=== PATIENT | female | born 1980 | race African-American/Black ===

== ENCOUNTER 2020-12-20 01:01 | Emergency (ER) | payer OTHER ==
[~2020-12-20] VITALS: Ht 167.6 cm; Wt 69.9 kg
--- NOTE | 2020-12-20 01:08 | NUR ---
PT BIBRA C/O OF DIZZINESS AND PALPITATIONS THAT HAVE RESOLVED. PT AAOX4. PT STATES THAT SHE HAS "BEEN EXPOSED TO MOLD IN HER APARTMENT". PT VSS STABLE, BREATHING EVENLY AND UNLABORED. SKIN IS WARM, DRY, AND INTACT. PT ATTACHED TO MONITOR AND POX. PT GIVEN BLANKET AND CALL LIGHT WITHIN REACH.
--- NOTE | 2020-12-20 01:14 | NUR ---
DR FOX AT BED SIDE
--- NOTE | 2020-12-20 01:23 | NUR ---
EMT AT BEDSIDE FOR EKG
--- NOTE | 2020-12-20 01:30 | NUR ---
LAB AT BEDSIDE
[2020-12-20 01:50] LABS: CALCIUM, SERUM 9.3 mg/dL (8.5-10.1); CARBON DIOXIDE 29 mmol/L (21-32); CHLORIDE 104 mmol/L (98-107); CREATININE 0.9 mg/dL (0.6-1.3); GLUCOSE 103 mg/dL (74-106); POTASSIUM 4.5 mmol/L (3.5-5.1); SODIUM SERUM 140 mmol/L (136-145); UREA NITROGEN, BLOOD 7 mg/dL (7-18)
--- NOTE | 2020-12-20 01:50 | NUR ---
XRAY AT BEDSIDE
[2020-12-20 01:56] LABS: ALANINE AMINOTRANSFERASE 15 U/L (12-78); ALBUMIN 3.8 g/dL (3.4-5.0); ALKALINE PHOSPHATASE 93 U/L (46-116); ASPARTATE AMINOTRANSFERASE 14 U/L (15-37); BILIRUBIN,TOTAL 0.4 mg/dL (0.2-1.0); TOTAL PROTEIN, SERUM 8.1 g/dL (6.4-8.2)
[2020-12-20 01:57] LABS: BASOPHILS % (AUTO) 0.7 % (0.0-2.0); EOSINOPHILS % (AUTO) 1.9 % (0.0-6.0); HEMATOCRIT 40 % (33-45); HEMOGLOBIN 13.6 g/dL (11.5-14.8); LYMPHOCYTES # (AUTO) 1.7 /CMM (0.8-4.8); LYMPHOCYTES % (AUTO) 30.6 % (20.0-44.0); MEAN CORPUSCULAR HGB CONC 34 g/dl (31.0-36.0); MEAN CORPUSCULAR VOLUME 92 fL (82-100); MONOCYTES # (AUTO) 0.5 /CMM (0.1-1.30); MONOCYTES % (AUTO) 8.6 % (2.0-12.0); NEUTROPHILS # (AUTO) 3.2 /CMM (1.8-8.9); NEUTROPHILS % (AUTO) 58.2 % (43.0-81.0); PLATELET COUNT (AUTO) 163 /CMM (150-450); RED BLOOD CELL COUNT(AUTO) 4.39 MIL/uL (4.0-5.2); WHITE BLOOD COUNT (AUTO) 5.5 K/uL (4.3-11.0)
--- NOTE | 2020-12-20 02:27 | NUR ---
Patient discharged to home in stable condition. Written and verbal after care instructions given. Patient verbalizes understanding of instruction. Pt ambulatory with a steady gait
[2020-12-20 02:29] VITALS: BP 137/78
== END 2020-12-20 02:26 | disposition home or self-care (01) ==
LOC: ER 01:04
DX: R00.2 Palpitations (principal); R42 Dizziness and giddiness; Z60.2 Problems related to living alone; Z91.048 Other nonmedicinal substance allergy status
CPT/HCPCS: 36415; 71045-TC; 80053-TC; 84484-TC; 85025-TC

== ENCOUNTER 2021-01-10 01:01 | Emergency (ER) | payer OTHER ==
[~2021-01-10] VITALS: Ht 167.6 cm; Wt 68.9 kg
--- NOTE | 2021-01-10 01:02 | NUR ---
BIBEMS C/O WOKE WITH PALPITATION, HEADACHE, L FACIAL NUMBNESS, & SWOLLEN TONGUE. 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 CURRENTLY W/ C/O L SIDED H/A. NO SOB OR DIFFICULTY BREATHING, PT AMBULATORY IN BED 4. VSS. WILL CONT TO MONITOR ,
--- NOTE | 2021-01-10 01:14 | NUR ---
dr barnes at [facility] [place]
--- NOTE | 2021-01-10 02:30 | NUR ---
Patient discharged to home in stable condition. Written and verbal after care instructions given. Patient verbalizes understanding of instruction.
[2021-01-10 02:31] VITALS: BP 114/70
== END 2021-01-10 02:32 | disposition home or self-care (01) ==
LOC: ER 01:02
DX: T78.49XA Other allergy, initial encounter (principal); F41.9 Anxiety disorder, unspecified; Z60.2 Problems related to living alone; X58.XXXA Exposure to other specified factors, initial encounter